=== PATIENT | male | born 1990 | race African-American/Black ===

== ENCOUNTER 2016-10-04 21:18 | Emergency (ER) | payer OTHER ==
[~2016-10-04] VITALS: Ht 162.6 cm; Wt 59.0 kg
[2016-10-04 21:21] VITALS: BP 128/78; TEMP 98.1
[2016-10-04] MEDS ORDERED: FOLIC ACID 11 MG/TA1 PO (21:25)
[2016-10-04 22:06] LABS: MEAN CELL VOLUME 82 fl (80.0-100.0); MEAN CORPUSCULAR HGB CONC 35 g/dl (33.0-37.0); MEAN PLATELET VOLUME 9.2 fl (7.4-10.4); PLATELET COUNT 264 K/mm3 (130-400); RED BLOOD COUNT 4.18 M/mm3 (4.20-5.60); REDCELL DISTRIBUTION WIDTH-CV 18.1 % (11.5-14.5); WHITE BLOOD COUNT 11.2 K/mm3 (4.8-10.8)
[2016-10-04 22:10] LABS: HEMATOCRIT 34.1 % (42.0-52.0); HEMOGLOBIN 11.8 g/dl (13.5-18.0); MEAN CORPUSCULAR HEMOGLOBIN 28 pg (27.0-31.0)
[2016-10-04 22:11] LABS: ADD PATHOLOGY DIFF REVIEW NO
[2016-10-04 22:23] LABS: BAND 3 % (0-10); EOSINOPHIL 2 % (0-4); NEUTROPHILS 55 % (42.0-75.2); TOTAL CELLS COUNTED 100
[2016-10-04 22:24] LABS: ANISOCYTOSIS 2+; TARGET CELLS 1+
[2016-10-04 22:34] LABS: SICKLE CELLS 1+
[2016-10-04 22:45] LABS: ADJUSTED CALCIUM 8.8 mg/dL (8.4-10.2); ALBUMIN 4.3 gm/dL (3.5-5.0); BILIRUBIN,TOTAL 2.3 mg/dL (0.0-1.0); CREATININE, serum 0.53 mg/dL (0.66-1.25); POTASSIUM 3.8 mmol/L (3.4-5.0); TOTAL PROTEIN 7.5 gm/dL (6.4-8.2)
[2016-10-04 23:44] VITALS: PULSE 89
[2016-10-05] MEDS ORDERED: PERCOCET 325 MG1 TA2 PO (07:05)
== END 2016-10-04 23:35 | disposition home or self-care (01) ==
LOC: COL.ER 21:18
PROVIDERS: Family Medicine
DX: D57.00 Hb-SS disease with crisis, unspecified (principal)
CPT/HCPCS: J1170; J7030

== ENCOUNTER 2016-10-05 05:55 | Emergency (ER) | payer OTHER ==
[~2016-10-05] VITALS: Ht 162.6 cm; Wt 59.0 kg
[~2016-10-05 05:55] MED LIST: FOLIC ACID 11 MG/TA1 PO
[2016-10-05 06:01] VITALS: TEMP 98.1
[2016-10-05 06:14] LABS: HEMOGLOBIN 12.1 g/dl (13.5-18.0); MEAN CELL VOLUME 81 fl (80.0-100.0); MEAN CORPUSCULAR HEMOGLOBIN 29 pg (27.0-31.0); MEAN CORPUSCULAR HGB CONC 35 g/dl (33.0-37.0); MEAN PLATELET VOLUME 9.5 fl (7.4-10.4); PLATELET COUNT 278 K/mm3 (130-400); RED BLOOD COUNT 4.25 M/mm3 (4.20-5.60); REDCELL DISTRIBUTION WIDTH-CV 17.9 % (11.5-14.5); RETIC % 5.1 % (0.5-3.52)
[2016-10-05 06:18] LABS: ADD PATHOLOGY DIFF REVIEW NO; HEMATOCRIT 34.6 % (42.0-52.0)
[2016-10-05 06:25] LABS: ADJUSTED CALCIUM 9.2 mg/dL (8.4-10.2); ALBUMIN 4.5 gm/dL (3.5-5.0); BILIRUBIN,TOTAL 2.6 mg/dL (0.0-1.0); CALCIUM 9.6 mg/dL (8.4-10.2); CREATININE, serum 0.5 mg/dL (0.66-1.25)
[2016-10-05 06:26] LABS: C-REACTIVE PROTEIN 0.5 mg/dL (0.0-0.9)
[2016-10-05 06:34] LABS: TROPONIN-I 0.023 ng/mL (0.000-0.034)
[2016-10-05 06:46] LABS: BAND 1 % (0-10); NEUTROPHILS 56 % (42.0-75.2); TOTAL CELLS COUNTED 100
[2016-10-05 06:48] LABS: TARGET CELLS 1+
[2016-10-05 06:49] LABS: HYPOCHROMIA 2+
[2016-10-05 06:51] LABS: ANISOCYTOSIS 2+; POIKILOCYTOSIS 2+
[2016-10-05] MEDS ORDERED: PERCOCET 325 MG1 TA2 PO (07:05)
[2016-10-05 08:25] LABS: ERYTHROCYTE SEDIMENTATION RATE 2 mm/hr (0-15)
[2016-10-05 08:48] VITALS: BP 136/92; PULSE 102
== END 2016-10-05 08:50 | disposition home or self-care (01) ==
LOC: COL.ER 05:55
PROVIDERS: Emergency Medicine
DX: D57.00 Hb-SS disease with crisis, unspecified (principal); R07.9 Chest pain, unspecified
CPT/HCPCS: J1170; J2060; J7030